=== PATIENT | female | born 1950 | race Caucasian/White ===

== ENCOUNTER 2019-08-26 13:13 | Outpatient (CLI) | payer MEDICARE, SELFPAY ==
--- NOTE | 2019-08-26 13:20 | XR_ITS ---
WS: [id number] SHOULDER LEFT TECHNIQUE: 3 views of the left shoulder CLINICAL INFORMATION: left shoulder pain COMPARISON: December 25, 2017 FINDINGS: Moderate degenerative arthritis at the AC joint. Mild downsloping of the acromion. Calcifications inv olving the rotator cuff insertion can be seen with calcific tendinitis. Left lung is well aerated. Morena pulido rotator cuff arthropathy. XR/XR shoulder LT min 2V* [id number] IMPRESSION: 1. Moderate degenerative arthritis at the AC joint. 2. Calcific tendinitis rotator cuff insertion.
== END 2019-08-26 13:14 | disposition home or self-care (01) ==
LOC: RADWPI 13:19
PROVIDERS: Family Provider Registered Nurse; PCP Nurse Practitioner Family; Visit Provider Nurse Practitioner Family
DX: M25.512 Pain in left shoulder (principal); E11.9 Type 2 diabetes mellitus without complications; M19.012 Primary osteoarthritis, left shoulder; M77.8 Other enthesopathies, not elsewhere classified
CPT/HCPCS: 73030; 83036

== ENCOUNTER 2019-11-19 13:17 | Outpatient (CLI) | payer MEDICARE, SELFPAY ==
--- NOTE | 2019-11-19 13:22 | MM_ITS ---
WS: [id number] SCREENING DIGITAL MAMMOGRAM WITH CAD HISTORY: SCREENING COMPARISON: 09/11/2018, 09/07/2017, 08/31/2014 Bilateral CC and MLO views submitted. Computer aided detection analyzed. Breast composition: The breasts are heterogeneously dense, which may obscure small masses. There are numerous bilateral asymmetries. Asymmetry in the medial mid LEFT breast has become more prominent. Ad ditional imaging has been performed of this asymmetry in the past but it appears more prominent today . Other asymmetries are stable. Benign calcifications. LEFT breast: Spot compression views (CC and MLO). True ML. Ultrasound to follow if abnormality ottoniel everett. MM/[place] [id number] IMPRESSION: BI-RADS: 0-Incomplete: Need additional imaging evaluation FOLLOW UP: Need Additional Imaging
== END 2019-11-19 13:18 | disposition home or self-care (01) ==
LOC: RADSHAW 13:21
PROVIDERS: PCP Nurse Practitioner Family; Visit Provider Nurse Practitioner Family
DX: Z12.31 Encounter for screening mammogram for malignant neoplasm of breast (principal); N64.89 Other specified disorders of breast
CPT/HCPCS: 77067

== ENCOUNTER → 2019-12-11 10:03 | Outpatient (BNVA) | payer MEDICARE, SELFPAY | PROVIDERS: PCP Nurse Practitioner Family; Visit Provider Nurse Practitioner Family | DX: E11.9 Type 2 diabetes mellitus without complications (principal); E03.9 Hypothyroidism, unspecified | CPT/HCPCS: 83036; 84443 ==

== ENCOUNTER 2019-12-25 08:57 | Outpatient (CLI) | payer MEDICARE, SELFPAY ==
--- NOTE | 2019-12-25 09:07 | US_ITS ---
WS: [id number] ADDITIONAL VIEWS LEFT MAMMOGRAM LEFT BREAST ULTRASOUND HISTORY: LT BREAST LUMP COMPARISON: 11/19/2019 and 09/11/2018 and 09/01/2015 LEFT MAMMOGRAM: Spot compression views and true ML. Slightly spiculated asymmetry at a middle depth LEFT breast near 9-10 o'clock persists. This asymmetr y measures only slightly greater in size. LEFT BREAST ULTRASOUND 2-D and color Doppler imaging submitted. Ultrasound is directed to the medial LEFT breast. There is a dense area of fibroglandular tissue with a few cystic areas at 10:00, 3 cm from the nipple. With no discrete mass. There is an additional hyp oechoic asymmetry at 10:00, 1 cm from the nipple measuring 6 x 7 x 7 mm. US/US breast LT limited* [id number] IMPRESSION: BI-RADS: 3-Probably Benign FOLLOW UP: 6 Month Follow-up Recommend LEFT mammogram and ultrasound follow-up in 6 months to reevaluate the asymmetry on mammogram at 10:00 and also the 2 hypoechoic areas in the LEFT br east at 10:00. Due to long-term stability this is probably variation in imaging technique and positioning. Due to the slight increase in size short-term follo w-up is recommended.
== END 2019-12-25 08:58 | disposition home or self-care (01) ==
PROVIDERS: PCP Nurse Practitioner Family; Visit Provider Nurse Practitioner Family
DX: N63.22 Unspecified lump in the left breast, upper inner quadrant (principal)
CPT/HCPCS: 76642; 77065

== ENCOUNTER 2020-02-21 16:28 | Outpatient (CLI) | payer MEDICARE, SELFPAY ==
--- NOTE | 2020-02-21 16:35 | USCV_ITS ---
Catherine Vu Age: 69 Gender: F : 1950 Exam Date: 02/21/2020 16:38 Ordering Phys: Juliet Braga-Ashley ASEHRP Technologist: Priscilla Jenkins [place] [facility] [place]: right leg swelling HISTORY: Lower extremity swelling. PROCEDURES: Venous duplex imaging was performed in only the right lower extremity. The following venous structures were evaluated: common femoral vein, profunda vein, proximal portion of the greater saphenous vein, superficial femoral vein, and the popliteal vein. In addition, the posterior tibial and peroneal trunk were evaluated. FINDINGS: Normal 2-D Doppler and augmentation and compressibility throughout the lower extremity venous structures. Additional imaging through the proximal calf veins also reveals no thrombus. Limited evaluation of the greater saphenous vein is patent with no thrombus. Complex cystic mass with low level echos and no vascularity measuring 1.7x4.34cm in the right popliteal fossa. CONCLUSIONS No evidence of right lower extremity DVT. Complex popliteal cyst measuring 1.7 x4.3cm with internal debris Rudy Ding MD (Electronically Signed) Final Date: 21 February 2020 17:06 S
== END 2020-02-21 16:29 | disposition home or self-care (01) ==
LOC: RAD 16:28
PROVIDERS: PCP Nurse Practitioner Family; Visit Provider Nurse Practitioner Family
DX: M79.89 Other specified soft tissue disorders (principal); M71.21 Synovial cyst of popliteal space [Baker], right knee
CPT/HCPCS: 93971

== ENCOUNTER → 2020-03-11 15:33 | Outpatient (BNVA) | payer MEDICARE, SELFPAY | PROVIDERS: PCP Nurse Practitioner Family; Visit Provider Dermatology | DX: D48.9 Neoplasm of uncertain behavior, unspecified (principal) | CPT/HCPCS: 88304 ==

== ENCOUNTER → 2020-06-11 08:15 | Outpatient (BNVA) | payer MEDICARE, SELFPAY | PROVIDERS: PCP Nurse Practitioner Family; Visit Provider Nurse Practitioner Family | DX: E11.9 Type 2 diabetes mellitus without complications (principal); E03.9 Hypothyroidism, unspecified; R30.0 Dysuria; Z51.81 Encounter for therapeutic drug level monitoring | CPT/HCPCS: 80048; 81000; 83036; 84443 ==

== ENCOUNTER → 2020-06-30 15:35 | Outpatient (BNVA) | payer MEDICARE, SELFPAY | PROVIDERS: PCP Nurse Practitioner Family; Visit Provider Nurse Practitioner Family | DX: R10.9 Unspecified abdominal pain (principal); N39.0 Urinary tract infection, site not specified; E03.9 Hypothyroidism, unspecified | CPT/HCPCS: 81000; 87086 ==

== ENCOUNTER → 2020-07-13 09:22 | Outpatient (BNVA) | payer MEDICARE, SELFPAY | PROVIDERS: PCP Nurse Practitioner Family; Visit Provider Nurse Practitioner Family | DX: N39.0 Urinary tract infection, site not specified (principal); N89.8 Other specified noninflammatory disorders of vagina | CPT/HCPCS: 81000; 87070; 87205 ==

== ENCOUNTER → 2020-07-17 09:27 | Outpatient (BNVA) | payer MEDICARE, SELFPAY | PROVIDERS: PCP Nurse Practitioner Family; Referring Provider Nurse Practitioner Family; Visit Provider Internal Medicine | DX: E03.9 Hypothyroidism, unspecified (principal) | CPT/HCPCS: 99204 ==

== ENCOUNTER → 2020-07-20 10:50 | Outpatient (BNVA) | payer MEDICARE, SELFPAY | PROVIDERS: PCP Nurse Practitioner Family; Visit Provider Nurse Practitioner Family | DX: E03.9 Hypothyroidism, unspecified (principal); A49.1 Streptococcal infection, unspecified site; F41.1 Generalized anxiety disorder | CPT/HCPCS: 84439; 84443 ==

== ENCOUNTER → 2020-08-07 10:02 | Outpatient (BNVA) | payer MEDICARE, SELFPAY | PROVIDERS: PCP Nurse Practitioner Family; Visit Provider Nurse Practitioner Family | DX: N89.8 Other specified noninflammatory disorders of vagina (principal); N95.1 Menopausal and female climacteric states | CPT/HCPCS: 87070; 87205 ==

== ENCOUNTER 2020-08-18 09:45 | Outpatient (CLI) | payer MEDICARE, SELFPAY ==
--- NOTE | 2020-08-18 09:51 | US_ITS ---
WS: [id number] DIAGNOSTIC LEFT DIGITAL MAMMOGRAM WITH CAD LEFT breast ultrasound, limited HISTORY: R92.8 - Other abnormal and inconclusive findings on diagnostic imaging of breast COMPARISON: 12/25/2019, 11/19/2019, 09/11/2018 and 09/01/2015 Technique: CC, MLO and ML views. Spot compression LEFT CC and MLO. Breast composition: The breasts are heterogeneously dense, which may obscure small masses. 8mm asymm etry in the medial LEFT breast at 9:00 persists but has not increased in size and is now more similar to prior studies dating back to 2016. There is a focal asymmetry just behind the nipple on the LEFT MLO projection only. LEFT breast ultrasound, limited. At 9-10 o'clock there a few small cysts and dense fibroglandular tissue. There is no shadowing or dis crete formed mass. Just posterior to the LEFT nipple are few mildly prominent ducts and a few small c ysts. No suspicious mass. US/US breast LT limited* [id number] IMPRESSION: BI-RADS: 3-Probably Benign FOLLOW UP: 6 Month Follow-up Patient should return in 6 months for annual mammogram. At that time additional imaging of the LEFT breast should be performed if necessary to document long-t erm stability of the asymmetries.
--- NOTE | 2020-08-18 10:00 | MM_ITS ---
WS: [id number] DIAGNOSTIC LEFT DIGITAL MAMMOGRAM WITH CAD LEFT breast ultrasound, limited HISTORY: R92.8 - Other abnormal and inconclusive findings on diagnostic imaging of breast COMPARISON: 12/25/2019, 11/19/2019, 09/11/2018 and 09/01/2015 Technique: CC, MLO and ML views. Spot compression LEFT CC and MLO. Breast composition: The breasts are heterogeneously dense, which may obscure small masses. 8mm asymm etry in the medial LEFT breast at 9:00 persists but has not increased in size and is now more similar to prior studies dating back to 2016. There is a focal asymmetry just behind the nipple on the LEFT MLO projection only. LEFT breast ultrasound, limited. At 9-10 o'clock there a few small cysts and dense fibroglandular tissue. There is no shadowing or dis crete formed mass. Just posterior to the LEFT nipple are few mildly prominent ducts and a few small c ysts. No suspicious mass. MM/[place] [id number] IMPRESSION: BI-RADS: 3-Probably Benign FOLLOW UP: 6 Month Follow-up Patient should return in 6 months for annual mammogram. At that time additional imaging of the LEFT breast should be performed if necessary to document long-t erm stability of the asymmetries.
== END 2020-08-18 09:46 | disposition home or self-care (01) ==
LOC: RADSHAW 09:48
PROVIDERS: PCP Nurse Practitioner Family; Visit Provider Nurse Practitioner Family
DX: R92.8 Other abnormal and inconclusive findings on diagnostic imaging of breast (principal); N64.89 Other specified disorders of breast
CPT/HCPCS: 76642; 77065

== ENCOUNTER → 2020-11-20 09:24 | Outpatient (BNVA) | payer MEDICARE, SELFPAY | PROVIDERS: PCP Nurse Practitioner Family; Visit Provider Nurse Practitioner Family | DX: E11.9 Type 2 diabetes mellitus without complications (principal) | CPT/HCPCS: 80061; 83036 ==

== ENCOUNTER → 2020-11-27 08:50 | Outpatient (BNVA) | payer MEDICARE, SELFPAY | PROVIDERS: PCP Nurse Practitioner Family; Visit Provider Nurse Practitioner Family | DX: N39.0 Urinary tract infection, site not specified (principal); R31.9 Hematuria, unspecified; H66.90 Otitis media, unspecified, unspecified ear | CPT/HCPCS: 81003; 87086 ==

== ENCOUNTER 2021-01-06 09:39 | Outpatient (CLI) | payer MEDICARE, SELFPAY ==
[2021-01-06 11:12] LABS: Free T4 Free Thyroxine 1.29 ng/dL (0.82-1.77); Thyroid Stimulating Hormone 3.97 uIU/mL (0.27-4.20)
== END 2021-01-06 09:40 | disposition home or self-care (01) ==
LOC: LAB 09:44
PROVIDERS: PCP Family Medicine; Visit Provider Internal Medicine
DX: E03.9 Hypothyroidism, unspecified (principal)
CPT/HCPCS: 36415; 84439; 84443

== ENCOUNTER → 2021-05-19 10:54 | Outpatient (BNVA) | payer MEDICARE, SELFPAY | PROVIDERS: PCP Family Medicine; Visit Provider Nurse Practitioner Family | DX: E11.9 Type 2 diabetes mellitus without complications (principal); G89.29 Other chronic pain; M25.562 Pain in left knee | CPT/HCPCS: 73562; 83036 ==

== ENCOUNTER → 2021-07-06 09:07 | Outpatient (BNVA) | payer MEDICARE, SELFPAY | PROVIDERS: PCP Family Medicine; Visit Provider Orthopaedic Surgery | DX: M25.562 Pain in left knee (principal) | CPT/HCPCS: 73560; 73565 ==

== ENCOUNTER → 2021-11-16 09:47 | Outpatient (BNVA) | payer MEDICARE, SELFPAY | PROVIDERS: PCP Family Medicine; Visit Provider Family Medicine | DX: F41.9 Anxiety disorder, unspecified (principal); E11.9 Type 2 diabetes mellitus without complications; E03.9 Hypothyroidism, unspecified; N95.1 Menopausal and female climacteric states | CPT/HCPCS: 80061; 83036; 84443 ==

== ENCOUNTER 2022-02-10 09:17 | Outpatient (CLI) | payer MEDICARE, SELFPAY ==
--- NOTE | 2022-02-10 09:36 | MM_ITS ---
WS: [id number] BILATERAL SCREENING DIGITAL TOMOSYNTHESIS MAMMOGRAM WITH CAD HISTORY: Screening. COMPARISON: 09/11/2018, 11/19/2019 and 02/08/2021 Bilateral CC and MLO views with tomosynthesis and synthetic mammography submitted. Computer aided det ection analyzed. Breast composition: The breasts are heterogeneously dense, which may obscure small masses. No suspici ous masses, microcalcifications or architectural distortion. Asymmetry in the medial LEFT breast near 9:00 is been present since 2019 without increase in size. Bilateral additional asymmetries and calci fications are also stable. MM/[place] [id number] IMPRESSION: BI-RADS: 2-Benign FOLLOW UP: 1 Year Follow-up
== END 2022-02-10 09:18 | disposition home or self-care (01) ==
PROVIDERS: PCP Family Medicine; Visit Provider Obstetrics & Gynecology
DX: Z12.31 Encounter for screening mammogram for malignant neoplasm of breast (principal)
CPT/HCPCS: 77063; 77067

== ENCOUNTER → 2022-06-16 10:37 | Outpatient (BNVA) | payer MEDICARE, SELFPAY | PROVIDERS: PCP Family Medicine; Visit Provider Family Medicine | DX: F41.9 Anxiety disorder, unspecified (principal); E11.9 Type 2 diabetes mellitus without complications; E03.9 Hypothyroidism, unspecified; F32.9 Major depressive disorder, single episode, unspecified; R23.2 Flushing; R05.3 Chronic cough; R59.0 Localized enlarged lymph nodes | CPT/HCPCS: 71046; 80048; 80061; 83036; 84443 ==

== ENCOUNTER 2022-07-06 13:54 | Outpatient (CLI) | payer MEDICARE, SELFPAY ==
--- NOTE | 2022-07-06 14:00 | CT_ITS ---
WS: [id number] CT CHEST TECHNIQUE: Noncontrast CT of the chest with coronal and sagittal reformatted images. CLINICAL INFORMATION: R05.3 - Chronic cough COMPARISON: None. DLP: 225.[address] scans at [facility] use at least one of these dose optimization techniques: automated e xposure control; mA and/or kV adjustment per patient size (includes targeted exams where dose is matc hed to clinical indication); or iterative reconstruction. FINDINGS: Lungs are well aerated. No acute pulmonary infiltrates. No focal pneumonia or pleural fluid. 6 mm sli ghtly spiculated lesion within the RIGHT middle lobe. Additional ovoid lesion in the RIGHT lower lobe measuring 7mm. Tiny hazy pulmonary nodule LEFT upper lobe measuring 4 mm. Additional hazy noncalcifi ed nodule LEFT lower lobe measuring 3 mm. Additional tiny hazy nodule in the RIGHT upper lobe. Normal caliber thoracic aorta. Aortic calcification. Coronary calcification. Thyroid gland appears no rmal. No mediastinal or hilar lymphadenopathy. No axillary lymphadenopathy. Adrenal glands are normal . Calcified splenic granulomas. Small esophageal hiatal hernia. Cholecystectomy clips. Fatty atrophy of the pancreas. Hypertrophic changes thoracic spine. CT/CT chest wo con [id number] IMPRESSION: 1. Slightly spiculated nodule in the RIGHT middle lobe measuring 6 mm. Additio nal ovoid 7 mm nodule in the RIGHT lower lobe. Recommend [address] follo w-up. 2. Additional tiny hazy subcentimeter pulmonary nodules measuring 3 to 4 mm de scribed above. 3. No acute pulmonary infiltrates. 4. No mediastinal or hilar lymphadenopathy. 5. Aortic and coronary calcification.
== END 2022-07-06 13:55 | disposition home or self-care (01) ==
LOC: RAD 13:58
PROVIDERS: PCP Family Medicine; Visit Provider Family Medicine
DX: R05.3 Chronic cough (principal); I70.0 Atherosclerosis of aorta; I25.10 Atherosclerotic heart disease of native coronary artery without angina pectoris; R91.8 Other nonspecific abnormal finding of lung field
CPT/HCPCS: 71250

== ENCOUNTER 2022-07-14 10:48 | Outpatient (CLI) | payer MEDICARE, SELFPAY ==
--- NOTE | 2022-07-14 11:15 | US_ITS ---
WS: [id number] ULTRASOUND SOFT TISSUES neck. HISTORY: R59.0 - Localized enlarged lymph nodes COMPARISON: None available. TECHNIQUE: 2-D and color Doppler imaging is submitted. Small cervical chain lymph nodes. No suspicious mass or lymphadenopathy. Limited visualization the th yroid gland demonstrates no abnormalities. Normal soft tissues. US/US soft tissue head neck [id number] IMPRESSION: Normal soft tissue ultrasound of the neck. No significant adenopathy. Visualize d thyroid appears negative.
== END 2022-07-14 10:49 | disposition home or self-care (01) ==
LOC: RAD 10:50
PROVIDERS: PCP Family Medicine; Visit Provider Family Medicine
DX: R59.0 Localized enlarged lymph nodes (principal); R05.3 Chronic cough
CPT/HCPCS: 76536

== ENCOUNTER → 2022-07-19 08:43 | Outpatient (BNVA) | payer MEDICARE, SELFPAY | PROVIDERS: PCP Family Medicine; Visit Provider Otolaryngology | DX: R05.9 Cough, unspecified (principal); R09.89 Other specified symptoms and signs involving the circulatory and respiratory systems; E86.0 Dehydration | CPT/HCPCS: 31575; 99203; 99204 ==

== ENCOUNTER → 2022-08-30 13:47 | Outpatient (BNVA) | payer MEDICARE, SELFPAY | PROVIDERS: PCP Family Medicine; Visit Provider Internal Medicine Pulmonary Disease | DX: R91.1 Solitary pulmonary nodule (principal); R05.3 Chronic cough; M25.641 Stiffness of right hand, not elsewhere classified; M25.642 Stiffness of left hand, not elsewhere classified; R06.02 Shortness of breath; K44.9 Diaphragmatic hernia without obstruction or gangrene | CPT/HCPCS: 36415; 80053; 82785; 85025; 85651; 86003; 86140; 86200; 86225; 86235; 86431; 99204 ==

== ENCOUNTER → 2023-02-07 12:03 | Outpatient (BNVA) | payer MEDICARE, SELFPAY | PROVIDERS: PCP Nurse Practitioner Family; Visit Provider Family Medicine | DX: F41.9 Anxiety disorder, unspecified; E11.9 Type 2 diabetes mellitus without complications; R91.1 Solitary pulmonary nodule; G89.29 Other chronic pain | CPT/HCPCS: 80053; 83036 ==

== ENCOUNTER 2023-02-15 09:43 | Outpatient (CLI) | payer MEDICARE, SELFPAY ==
--- NOTE | 2023-02-15 10:04 | MM_ITS ---
WS: [id number] Bilateral screening 3D tomosynthesis digital mammogram, 02/15/2023 Clinical Data: SCREENING Comparison: 02/10/2022, 02/08/2021, 08/18/2020, 12/25/2019, 11/19/2019, 09/11/2018, 09/07/2017, 09/01/2016, 09/01/2015, 08/26/2015, 08/23/2013, 08/17/2012, 07/07/2011, 06/23/2010, 06/18/2009, 06/09/2008, 06/08/2007, 06/06/19 07. Findings: The breast parenchymal pattern shows heterogeneous density. No spiculated masses or clustered calcifi cations are seen. There are no secondary signs of carcinoma. The medial left breast nodule has not ch anged. Impression: 1. Negative bilateral mammogram unchanged. 2. Recommend annual screening mammograms. MM/[place] [id number] BIRADS: 1-Negative FOLLOW UP: 1 Year Follow-up The CAD negative checker was used.
== END 2023-02-15 09:44 | disposition home or self-care (01) ==
LOC: RAD 09:44
PROVIDERS: PCP Nurse Practitioner Family; Visit Provider Family Medicine
DX: Z12.31 Encounter for screening mammogram for malignant neoplasm of breast (principal)
CPT/HCPCS: 77063; 77067

== ENCOUNTER 2023-02-23 08:44 | Outpatient (CLI) | payer MEDICARE, SELFPAY ==
--- NOTE | 2023-02-23 09:00 | CT_ITS ---
WS: [email or web address] CT chest wo con [id number] HISTORY: R91.1 - Solitary pulmonary nodule TECHNIQUE: Axial imaging performed through the thorax. Coronal and sagittal reformats are submitted. All CT scans at [facility] use at least one of these dose optimization techniques: automated exposure control; mA and/or kV adjustment per patient size (includes targeted exams where dose is mat ched to clinical indication); or iterative reconstruction. CONTRAST: None DLP: 223.14 mGy.cm COMPARISON: 02/23/2023 Lungs and central airway: Normally aerated lungs. Slightly spiculated 6 mm nodule in the RIGHT middle lobe reidentified without significant increase in size. Additional 7 mm stable nodule in the RIGHT l ower lobe. No additional nodules or mass in the RIGHT lung. LEFT upper lobe 4 mm nodule is stable. 3 mm micronodule superior LEFT lower lobe. No new or enlarging nodules. No pneumonia. Pleura: Normal. No pleural effusion. Heart and pericardium: Normal size heart with no pericardial effusion. Mediastinum and jj: No adenopathy identified on this unenhanced exam. Vessels: Moderate atherosclerosis aorta with no aneurysm. Normal sized pulmonary artery. Coronary art rashid calcifications. Chest wall and lower neck: No soft tissue masses. Upper abdomen: Prior cholecystectomy. No adrenal mass. Calcified splenic granulomas. Small hiatal her tam. Osseous structures: No destructive process. IMPRESSION: 1. No change in the subcentimeter bilateral pulmonary nodules since 02/23/2023. No new nodule or incr easing size of nodules. Recommend continued 6-month chest CT follow-up. 2. Coronary artery atherosclerosis and atherosclerosis aorta. 3. Prior cholecystectomy. 4. No mediastinal or hilar adenopathy.
== END 2023-02-23 08:45 | disposition home or self-care (01) ==
LOC: RAD 08:44
PROVIDERS: PCP Nurse Practitioner Family; Visit Provider Family Medicine
DX: R91.8 Other nonspecific abnormal finding of lung field (principal)
CPT/HCPCS: 71250

== ENCOUNTER → 2023-04-02 14:25 | Outpatient (BNVA) | payer MEDICARE, SELFPAY | PROVIDERS: PCP Nurse Practitioner Family; Visit Provider Emergency Medicine | DX: R39.9 Unspecified symptoms and signs involving the genitourinary system (principal); N30.01 Acute cystitis with hematuria | CPT/HCPCS: 81000; 87086 ==

== ENCOUNTER → 2023-07-31 09:12 | Outpatient (BNVA) | payer MEDICARE, SELFPAY | PROVIDERS: PCP Nurse Practitioner Family; Visit Provider Nurse Practitioner Family | DX: F41.1 Generalized anxiety disorder (principal); E11.9 Type 2 diabetes mellitus without complications; E03.9 Hypothyroidism, unspecified; N95.1 Menopausal and female climacteric states; R23.2 Flushing | CPT/HCPCS: 80053; 80061; 81003; 83036; 84439; 84443; 85025 ==

== ENCOUNTER 2023-08-25 11:43 | Outpatient (CLI) | payer MEDICARE, SELFPAY ==
--- NOTE | 2023-08-25 12:00 | CT_ITS ---
WS: [email or web address] CT chest wo con [id number] HISTORY: R91.1 - Solitary pulmonary nodule TECHNIQUE: Axial imaging performed through the thorax. Coronal and sagittal reformats are submitted. All CT scans at [facility] use at least one of these dose optimization techniques: automated exposure control; mA and/or kV adjustment per patient size (includes targeted exams where dose is mat ched to clinical indication); or iterative reconstruction. CONTRAST: None DLP: 238.21 mGy.cm COMPARISON: 02/23/2023, 07/06/2022 Lungs and central airway: No interval change in the bilateral pulmonary nodules since 07/06/2022. 5 mm slightly spiculated nodule superior segment RIGHT lower lobe is unchanged. Additional 5 mm nodule wel l-circumscribed in the RIGHT lower lobe is also unchanged. There are additional smaller nodules noted bilaterally and a few granuloma which are unchanged. No new mass. No pneumonia. Pleura: Normal. No pleural effusion. Heart and pericardium: Normal size heart with no pericardial effusion. Mediastinum and jj: No adenopathy identified on this unenhanced exam. Small lymph nodes would not b e visible. Vessels: Moderate atherosclerosis aorta. No aneurysm. Normal size pulmonary artery. Moderate calcific ation throughout the coronary arteries. Chest wall and lower neck: No soft tissue masses. Upper abdomen: Small hiatal hernia. Splenic granulomata. Prior cholecystectomy. No adrenal mass. Osseous structures: Increase in thoracic kyphosis. IMPRESSION: 1. No interval change in the bilateral pulmonary nodules. The largest nodules in the RIGHT lower lob e measure 5 mm. Recommend follow-up chest CT in 6 to 12 months for continued documentation of stabili ty. 2. Moderate coronary artery atherosclerosis. 3. Prior cholecystectomy.
== END 2023-08-25 11:44 | disposition home or self-care (01) ==
LOC: RAD 11:44
PROVIDERS: PCP Nurse Practitioner Family; Visit Provider Nurse Practitioner Family
DX: R91.1 Solitary pulmonary nodule (principal); I25.10 Atherosclerotic heart disease of native coronary artery without angina pectoris
CPT/HCPCS: 71250

== ENCOUNTER → 2024-01-29 09:18 | Outpatient (BNVA) | payer MEDICARE, SELFPAY | PROVIDERS: PCP Nurse Practitioner Family; Visit Provider Nurse Practitioner Family | DX: E55.9 Vitamin D deficiency, unspecified (principal); E11.9 Type 2 diabetes mellitus without complications | CPT/HCPCS: 80053; 82306; 83036; 85025 ==

== ENCOUNTER 2024-02-20 08:45 | Outpatient (CLI) | payer MEDICARE, SELFPAY ==
--- NOTE | 2024-02-20 09:00 | CTR_ITS ---
PROCEDURE INFORMATION: Exam: CT Chest Without Contrast; Diagnostic Exam date and time: 02/20/2024 9:05 AM Age: 73 years old Clinical indication: Condition or disease; Lung condition and disease; Pulmonary nodule, solitary; Additional info: R91.1 - solitary pulmonary nodule TECHNIQUE: Imaging protocol: Diagnostic computed tomography of the chest without contrast. Radiation optimization: All CT scans at this facility use at least one of these dose optimization techniques: automated exposure control; mA and/or kV adjustment per patient size (includes targeted exams where dose is matched to clinical indication); or iterative reconstruction. COMPARISON: 1. CT chest con [id number] 08/25/2023 11:[address] chest con [id number] 02/23/2023 8:53 AM RADIATION DOSE METRICS: Total DLP (mGy-cm): 219.51 FINDINGS: Thyroid: Punctate calcifications in the left thyroid lobe has been stable since January 2023. Consider a follow-up ultrasound if not already performed. Trachea: Airways are patent. Lungs: Stable bilateral lung nodules since January 2023, the largest in the right lower lobe measuring 8 mm. No new lung nodules. There is no evidence of focal pulmonary consolidation. Pleural spaces: No pleural effusions or pneumothorax. Heart: Calcifications of the aortic valve annulus. No cardiomegaly. No pericardial thickening or effusion. Coronary arteries: There is severe atherosclerotic calcification of the coronary arteries. Mediastinal space: The mediastinal contour is normal. Lymph nodes: There is no evidence of lymphadenopathy. Vasculature: Moderate diffuse calcific atherosclerosis of the aorta. No aortic aneurysms. The pulmonary arteries are normal in course and caliber. Diaphragm: Small hiatal hernia. Liver: Single calcified liver granuloma is benign. Gallbladder and biliary ducts: Cholecystectomy. Spleen: The spleen demonstrates punctate calcifications, consistent with remote granulomatous organism exposure. An accessory splenule is present. Bones/joints: Mild multilevel degenerative changes of the spine. No acute skeletal abnormality or aggressive osseous lesion. Soft tissues: No acute soft tissue findings. Other findings: Right hilar calcified granulomas, benign. CT/CT chest con [id number] IMPRESSION: Stable
== END 2024-02-20 08:46 | disposition home or self-care (01) ==
LOC: RAD 08:46
PROVIDERS: PCP Nurse Practitioner Family; Visit Provider Nurse Practitioner Family
DX: R91.8 Other nonspecific abnormal finding of lung field (principal); E07.89 Other specified disorders of thyroid; I70.0 Atherosclerosis of aorta; I25.84 Coronary atherosclerosis due to calcified coronary lesion; K44.9 Diaphragmatic hernia without obstruction or gangrene; K75.3 Granulomatous hepatitis, not elsewhere classified; Z90.49 Acquired absence of other specified parts of digestive tract; D73.89 Other diseases of spleen
CPT/HCPCS: 71250

== ENCOUNTER 2024-02-26 09:47 | Outpatient (CLI) | payer MEDICARE, SELFPAY ==
--- NOTE | 2024-02-26 09:48 | MM_ITS ---
WS: [email or web address] BILATERAL SCREENING DIGITAL TOMOSYNTHESIS MAMMOGRAM WITH CAD HISTORY: SCREENING COMPARISON: 02/15/2023, 02/10/2022 and 11/19/2019 Bilateral CC and MLO views with tomosynthesis and synthetic mammography submitted. Computer aided det ection analyzed. Breast composition: The breasts are heterogeneously dense, which may obscure small masses. No suspici ous masses, microcalcifications or architectural distortion. Stable spiculated asymmetry in the media l central LEFT breast which has been described on multiple prior examinations without progression. Be nign calcifications. MM/MM scr BI tomosynthesis [id number] IMPRESSION: BI-RADS: 2 - Benign FOLLOW UP: 1 Year Follow-up
== END 2024-02-26 09:48 | disposition home or self-care (01) ==
LOC: RAD 09:47
PROVIDERS: PCP Nurse Practitioner Family; Visit Provider Nurse Practitioner Family
DX: Z12.31 Encounter for screening mammogram for malignant neoplasm of breast (principal); R92.323 Mammographic fibroglandular density, bilateral breasts; R92.1 Mammographic calcification found on diagnostic imaging of breast
CPT/HCPCS: 77063; 77067

== ENCOUNTER → 2024-07-24 08:54 | Outpatient (BNVA) | payer MEDICARE, SELFPAY | PROVIDERS: PCP Nurse Practitioner Family; Visit Provider Nurse Practitioner Family | DX: S53.401A Unspecified sprain of right elbow, initial encounter (principal); X58.XXXA Exposure to other specified factors, initial encounter; E11.9 Type 2 diabetes mellitus without complications; F41.9 Anxiety disorder, unspecified; E03.9 Hypothyroidism, unspecified; K21.9 Gastro-esophageal reflux disease without esophagitis; W19.XXXA Unspecified fall, initial encounter; L03.113 Cellulitis of right upper limb; R05.3 Chronic cough; R91.1 Solitary pulmonary nodule; Z76.0 Encounter for issue of repeat prescription | CPT/HCPCS: 73080; 83036 ==

== ENCOUNTER → 2025-01-22 09:39 | Outpatient (BNVA) | payer MEDICARE, OTHER, SELFPAY | PROVIDERS: PCP Nurse Practitioner Family; Visit Provider Nurse Practitioner Family | DX: E55.9 Vitamin D deficiency, unspecified (principal); R91.1 Solitary pulmonary nodule; E11.9 Type 2 diabetes mellitus without complications; E03.9 Hypothyroidism, unspecified; Z79.899 Other long term (current) drug therapy | CPT/HCPCS: 80053; 80061; 81003; 82306; 83036; 84443; 85025 ==

== ENCOUNTER 2025-01-29 08:02 | Outpatient (CLI) | payer MEDICARE, OTHER, SELFPAY ==
--- NOTE | 2025-01-29 08:00 | CT_ITS ---
WS: [id number] CT chest wo con [id number] REASON FOR EXAM: R91.1 - Solitary pulmonary nodule IV CONTRAST ADMINISTERED: None. TECHNIQUE: Multiple low-dose axial images without intravenous contrast enhancement. Coronal and sagittal reconstructions. COMPARISON EXAM: 02/20/2024. TOTAL EXAM DLP: 200.[address] scans at [facility] use at least one of these dose optimization techniques: automated exposure control; mA and/or kV adjustment per patient size (includes targeted exams where dose is matched to clinical indication); or iterative reconstruction. FINDINGS: CT of the chest is unchanged compared to the previous examination. No change in the right and left lung nodule previously identified. No new nodules are identified. No other significant pulmonary parenchymal or pleural abnormality is identified. The thyroid, liver, and spleen are unchanged. Mild degenerative spondylosis in the midthoracic spine. No focal bone lesion. CT/CT chest wo con [id number] IMPRESSION: Stable chest as above. Follow-up in 1 year. L RADS 2
== END 2025-01-29 08:03 | disposition home or self-care (01) ==
LOC: RAD 08:03
PROVIDERS: PCP Nurse Practitioner Family; Visit Provider Nurse Practitioner Family
DX: R91.1 Solitary pulmonary nodule (principal); M47.814 Spondylosis without myelopathy or radiculopathy, thoracic region
CPT/HCPCS: 71250

== ENCOUNTER → 2025-02-13 10:46 | Outpatient (BNVA) | payer MEDICARE, OTHER, SELFPAY | PROVIDERS: PCP Nurse Practitioner Family; Referring Provider Nurse Practitioner Family; Visit Provider Dermatology | DX: L60.8 Other nail disorders (principal); D18.01 Hemangioma of skin and subcutaneous tissue; D23.39 Other benign neoplasm of skin of other parts of face; L82.1 Other seborrheic keratosis | CPT/HCPCS: 99203 ==

== ENCOUNTER 2025-03-05 10:01 | Outpatient (CLI) | payer MEDICARE, OTHER, SELFPAY ==
--- NOTE | 2025-03-05 10:08 | MM_ITS ---
WS: [email or web address] BILATERAL SCREENING DIGITAL TOMOSYNTHESIS MAMMOGRAM WITH CAD HISTORY: SCREENING COMPARISON: 11/19/2019, 08/18/2020, 02/10/2022, 02/26/2024 Bilateral CC and MLO views with tomosynthesis and synthetic mammography submitted. Computer aided detection analyzed. Breast composition: The breasts are heterogeneously dense, which may obscure small masses. No suspicious masses, microcalcifications or architectural distortion. Numerous densities are scattered throughout each breast along with calcifications. These densities and asymmetries have been present since at least 2019. No new or increasing size of any of the asymmetries. MM/MM scr BI tomosynthesis [id number] IMPRESSION: BI-RADS: 2 - Benign FOLLOW UP: 1 Year Follow-up
== END 2025-03-05 10:02 | disposition home or self-care (01) ==
LOC: RAD 10:02
PROVIDERS: PCP Nurse Practitioner Family; Visit Provider Nurse Practitioner Family
DX: Z12.31 Encounter for screening mammogram for malignant neoplasm of breast (principal); R92.333 Mammographic heterogeneous density, bilateral breasts; R92.1 Mammographic calcification found on diagnostic imaging of breast; N64.89 Other specified disorders of breast
CPT/HCPCS: 77063; 77067

== ENCOUNTER → 2025-04-02 09:44 | Outpatient (BNVA) | payer MEDICARE, OTHER, SELFPAY | PROVIDERS: PCP Nurse Practitioner Family; Referring Provider Nurse Practitioner Family; Visit Provider Dermatology | DX: L40.8 Other psoriasis (principal); L60.8 Other nail disorders; L85.8 Other specified epidermal thickening | CPT/HCPCS: 99213 ==

== ENCOUNTER → 2025-04-21 10:25 | Outpatient (BNVA) | payer MEDICARE, OTHER, SELFPAY | PROVIDERS: PCP Nurse Practitioner Family; Visit Provider Nurse Practitioner Family | DX: E11.9 Type 2 diabetes mellitus without complications (principal) | CPT/HCPCS: 83036 ==